=== PATIENT | female | born 1970 | race Caucasian/White ===

== ENCOUNTER 2017-08-12 00:21 | Emergency (ER) | payer OTHER ==
[2017-08-12] MEDS ORDERED: Diazepam TAB(*) 5 MG PO ONE (00:59)
--- NOTE | 2017-08-12 01:26 | ED ---
GI/ HPI - HPI Summary HPI Summary: 47F presents with vibrator in vagina today. she states the vibrator has been in the area for an hour. She denies any vaginal bleeding or discharge. She has pain from the vibrator. She denies any dysuria, n/v. She denies any diarrhea or constipation. She has not taken anything for her pain. pain is 6/ 10. - History of Current Complaint Chief Complaint: EDUrogenitalProblems Time Seen by Provider: 08/12/17 00:33 Stated Complaint: F/B IN VAGINA Hx Last Menstrual Period: december 27 Pain Intensity: 0 - Allergy/Home Medications Allergies/Adverse Reactions: Allergies Allergy/AdvReac Type Severity Reaction Status Date / Time Sulfa Antibiotics Allergy Hives Verified 10/19/15 16:20 PMH/Surg Hx/FS Hx/Imm Hx Endocrine/Hematology History: Reports: Hx Diabetes Denies: Hx Thyroid Disease Cardiovascular History: Denies: Hx Congestive Heart Failure, Hx Deep Vein Thrombosis, Hx Hypertension , Hx Myocardial Infarction, Hx Pacemaker/ICD Respiratory History: Denies: Hx Asthma, Hx Chronic Obstructive Pulmonary Disease (COPD), Hx Lung Cancer, Hx Pneumonia, Hx Pulmonary Embolism GI History: Denies: Hx Gall Bladder Disease, Hx Gastrointestinal Bleed, Hx Ulcer, Hx Urosepsis History: Denies: Hx Kidney Stones, Hx Renal Disease Musculoskeletal History: Denies: Hx Rheumatoid Arthritis, Hx Osteoporosis Neurological History: Denies: Hx Dementia, Hx Migraine, Hx Seizures, Hx Transient Ischemic Attacks (TIA) Psychiatric History: Denies: Hx Anxiety, Hx Depression, Hx Schizophrenia, Hx Bipolar Disorder Infectious Disease History: No Infectious Disease History: Denies: Hx Clostridium Difficile, Hx Hepatitis, Hx Human Immunodeficiency Virus (HIV), Hx of Known/Suspected MRSA, Hx Shingles, Hx Tuberculosis, Hx Known/ Suspected VRE, Hx Known/Suspected VRSA, History Other Infectious Disease, Traveled Outside the [place] in Last 30 Days - Family History Known Family History: Positive: None - Social History Alcohol Use: Occasionally Substance Use Type: Reports: None Smoking Status (MU): Never Smoked Tobacco Have You Smoked in the Last Year: No Review of Systems Negative: Fever Negative: Chest Pain Negative: Shortness Of Breath Positive: Abdominal Pain, Other - foreign body in vagina . Negative: Vomiting, Diarrhea, Nausea All Other Systems Reviewed And Are Negative: Yes Physical Exam Triage Information Reviewed: Yes Vital Signs On Initial Exam: Initial Vitals Temp Pulse Resp BP Pulse Ox 98.9 F 95 16 162/88 99 08/12/17 00:23 08/12/17 00:23 08/12/17 00:23 08/12/17 00:23 08/12/17 00:23 Vital Signs Reviewed: Yes Appearance: Positive: Well-Appearing Skin: Positive: Warm, Dry Head/Face: Positive: Normal Head/Face Inspection Eyes: Positive: Normal, Conjunctiva Clear Respiratory/Lung Sounds: Positive: Clear to Auscultation, Breath Sounds Present Cardiovascular: Positive: Normal, RRR Abdomen Description: Positive: Nontender, Soft Bowel Sounds: Positive: Present Pelvic Exam: Positive: external exam normal, other - purple foreign body on speculum exam. Negative: blood, discharge Musculoskeletal: Positive: Normal Neurological: Positive: Normal Psychiatric: Positive: Normal - [place] Coma Scale Coma Scale Total: 15 Diagnostics - Vital Signs Vital Signs Temp Pulse Resp BP Pulse Ox 08/12/17 01:03 16 08/12/17 00:23 98.9 F 95 16 162/88 99 - Laboratory Lab Statement: Any lab studies that have been ordered have been reviewed, and results considered in the medical decision making process. GIGU Course/Dx - Course Course Of Treatment: 47F presents with vibrator in vagina today. she states the vibrator has been in the area for an hour. She denies any vaginal bleeding or discharge. She has pain from the vibrator. She denies any dysuria, n/v. She denies any diarrhea or constipation. She has not taken anything for her pain. pain is 6/10. on speculum exam has small purple object in vagina. removed object with foreceps. patient understand and agrees with plan. - Diagnoses Differential Diagnoses - Female: Pelvic Inflammatory Disease, Retained Foreign Body, Vaginitis Provider Diagnoses: Foreign body in vagina Discharge - Discharge Plan Condition: Good Disposition: HOME Patient Education Materials: Vaginal Foreign Body (ED) Referrals: Dipika Lamas MD [Primary Care Provider] - Additional Instructions: Area may bleed a little Take Tylenol or ibuprofen for pain Return to ED if develop any new or worsening symptoms
[2017-08-12 01:31] VITALS: BP 150/66
== END 2017-08-12 01:30 | disposition home or self-care (01) ==
LOC: ED 00:21
DX: T19.2XXA Foreign body in vulva and vagina, initial encounter (principal); R10.9 Unspecified abdominal pain; E11.9 Type 2 diabetes mellitus without complications; X58.XXXA Exposure to other specified factors, initial encounter; Y92.9 Unspecified place or not applicable
CPT/HCPCS: 99282; A9270-GY

== ENCOUNTER 2018-04-29 14:54 | Emergency (ER) | payer OTHER ==
[2018-04-29] MEDS ORDERED: diPHENhydraMINE PO* 25 MG PO ONE (16:39)
[2018-04-29] MEDS ORDERED: Dexamethasone TAB* 4 MG PO ONE (16:39)
--- NOTE | 2018-04-29 16:49 | ED ---
Allergic Reaction/Systemic - HPI Summary HPI Summary: The pt is a 47 y.o female presenting to the [facility] with a chief complaint of a rash. The pt's symptoms have not resolved and are currently present. The pt described the rash as hive-like with redness and they are currently present in the abd regions. She has not attempted to touch the hives. Pt denies SOB, double vision, SIEGEL, ear ache, sore throat, back pain, abd pain, burning urination , nausea, vomiting, swollen tongue, fevers, and chills. She reports blurry vision in the past due to DM. The pt also states she has not taken Benadryl. The patient rates the pain 0/10 in severity. Symptoms aggravated by nothing. Symptoms alleviated by nothing. - History of Current Complaint Chief Complaint: EDRashSkinAbscess Hx Obtained From: Patient Hx Last Menstrual Period: two weeks ago, states she is not PG Onset/Duration: Still Present Timing: Constant Severity Currently: None Pain Intensity: 0 Pain Scale Used: 0-10 Numeric Location: Discrete @ - lower abd regions Character: Hives Aggravating Factor(s): Nothing Alleviating Factor(s): Nothing Associated Signs And Symptoms: Negative: Abdominal Pain, Difficulty Breathing - Related Hx Possible Reaction To: Unknown - Allergies/Home Medications Allergies/Adverse Reactions: Allergies Allergy/AdvReac Type Severity Reaction Status Date / Time Sulfa (Sulfonamide Allergy Hives Verified 04/29/18 15:09 Antibiotics) PMH/Surg Hx/FS Hx/Imm Hx Endocrine/Hematology History: Reports: Hx Diabetes - II on oral agents Denies: Hx Thyroid Disease Cardiovascular History: Denies: Hx Congestive Heart Failure, Hx Deep Vein Thrombosis, Hx Hypertension , Hx Myocardial Infarction, Hx Pacemaker/ICD Respiratory History: Denies: Hx Asthma, Hx Chronic Obstructive Pulmonary Disease (COPD), Hx Lung Cancer, Hx Pneumonia, Hx Pulmonary Embolism GI History: Denies: Hx Gall Bladder Disease, Hx Gastrointestinal Bleed, Hx Ulcer, Hx Urosepsis History: Denies: Hx Kidney Stones, Hx Renal Disease Musculoskeletal History: Denies: Hx Rheumatoid Arthritis, Hx Osteoporosis Neurological History: Denies: Hx Dementia, Hx Migraine, Hx Seizures, Hx Transient Ischemic Attacks (TIA) Psychiatric History: Denies: Hx Anxiety, Hx Depression, Hx Schizophrenia, Hx Bipolar Disorder - Surgical History Surgery Procedure, Year, and Place: none Infectious Disease History: No Infectious Disease History: Denies: Hx Clostridium Difficile, Hx Hepatitis, Hx Human Immunodeficiency Virus (HIV), Hx of Known/Suspected MRSA, Hx Shingles, Hx Tuberculosis, Hx Known/ Suspected VRE, Hx Known/Suspected VRSA, History Other Infectious Disease, Traveled Outside the [place] in Last 30 Days - Family History Known Family History: Positive: Diabetes Negative: Seizure Disorder - Social History Alcohol Use: Occasionally Hx Substance Use: No Substance Use Type: Reports: None Smoking Status (MU): Never Smoked Tobacco Have You Smoked in the Last Year: No Review of Systems Negative: Fever, Chills Eyes: Other - Negative double vision Positive: Blurred Vision - due to DM ENT: Other - Negative swollen tongue Negative: Sore Throat, Ear Ache Negative: Chest Pain Negative: Shortness Of Breath Negative: Abdominal Pain, Vomiting, Nausea Positive: no symptoms reported. Negative: burning Musculoskeletal: Other - Negative back pain Positive: Rash - Hives(redness) present at abd regions Neurological: Negative Psychological: Normal All Other Systems Reviewed And Are Negative: No Physical Exam - Summary Physical Exam Summary: Appearance: Alert, conversive, nontoxic appearing Skin: Hives urticarial lesions to the RUQ, RLQ and Left flank HEENT: EOMI, PERRL, moist mucous membranes Neck: No masses on the neck, supple Respiratory: Clear to auscultation, breath sounds present, no rales, no rhonchi , no wheezes Cardiovascular: RRR, pulses are symmetrical in both lower and upper extremities Abdomen: Soft, non-tender Bowel Sounds: Present Musculoskeletal: No CVA tenderness, no obvious deformity, moving all extremities in a grossly normal manner Neurological: A&Ox3, CN II-XII Intact, moving all extremities symmetrically Psychiatric: Normal affect and mood Triage Information Reviewed: Yes Vital Signs On Initial Exam: Initial Vitals Temp Pulse Resp BP Pulse Ox 97.8 F 84 16 143/99 97 04/29/18 15:03 04/29/18 15:03 04/29/18 15:03 04/29/18 15:03 04/29/18 15:03 Vital Signs Reviewed: Yes Diagnostics - Vital Signs Vital Signs Temp Pulse Resp BP Pulse Ox 04/29/18 15:03 97.8 F 84 16 143/99 97 - Laboratory Lab Statement: Any lab studies that have been ordered have been reviewed, and results considered in the medical decision making process. Allergic Reaction Course/Dx - Course Course Of Treatment: The pt is a 47 y.o female [facility] chief complaint of rash. Pt states the rash is present at the abd region and is unaware of the cause of the hives. The pt will be given Benedryl as well as steroids for treatment. Pt states she does have DM and we discussed the possibility of a slight raise in blood glucose levels as a result of the steroid treatment. We recommended follow up with PCP. She will be discharged home with a dx of Urticaria, contact dermitits. - Diagnoses Provider Diagnoses: Urticaria, Contact dermatitis Discharge - Sign-Out/Discharge Documenting (check all that apply): Patient Departure - Discharge home - Discharge Plan Condition: Stable Disposition: HOME Patient Education Materials: Urticaria (ED) Referrals: Dipika Lamas MD [Primary Care Provider] - Additional Instructions: take benadryl as instructed. you may take pepcid over the counter for itching and allergic reactions as well. follow up with your primary care physician. Please return if worse or any new symptoms. - Attestation Statements Document Initiated by Scribe: Yes Documenting Scribe: David Pope Provider For Whom Scribe is Documenting (Include Credential): Dr. Sharonda Hill Scribe Attestation: David Billings, scribed for Dr. Sharonda Hill on 04/29/18 at 1703.
[2018-04-29 17:17] VITALS: BP 152/86
== END 2018-04-29 17:16 | disposition home or self-care (01) ==
LOC: ED 14:54
DX: L50.9 Urticaria, unspecified (principal); L25.9 Unspecified contact dermatitis, unspecified cause; E11.9 Type 2 diabetes mellitus without complications; Z79.84 Long term (current) use of oral hypoglycemic drugs; Z88.2 Allergy status to sulfonamides
CPT/HCPCS: 99282; A9270-GY; J8540

== ENCOUNTER 2018-11-06 17:42 | Emergency (ER) | payer BC, OTHER ==
[2018-11-06 17:58] VITALS: BP 126/85
--- NOTE | 2018-11-06 18:19 | UC ---
Skin Complaint HPI - HPI Summary HPI Summary: 48-year-old female presents with complaints of pruritic rash for approximately 3 weeks. States she has had a persistent rash to bilateral forearms with intermittent rashes to her face and chest. 5 days ago developed rash to bilateral buttocks and upper legs. Denies swelling of the lips, tongue, throat , difficulty breathing, changes in medications, diet, soaps, detergents, lotions , cosmetics, or known contact with environmental irritants. - History of Current Complaint Chief Complaint: UCRash Time Seen by Provider: 11/06/18 18:14 Stated Complaint: RASH Hx Obtained From: Patient Hx Last Menstrual Period: 08/31/18 Pain Intensity: 0 - Allergy/Home Medications Allergies/Adverse Reactions: Allergies Allergy/AdvReac Type Severity Reaction Status Date / Time Sulfa (Sulfonamide Allergy Hives Verified 11/06/18 17:58 Antibiotics) PMH/Surg Hx/FS Hx/Imm Hx Endocrine History: Diabetes Other History Of: Negative For: HIV, Hepatitis B, Hepatitis C - Surgical History Surgical History: None Surgery Procedure, Year, and Place: none - Family History Known Family History: Positive: None, Diabetes Negative: Seizure Disorder - Social History Lives: With Family Alcohol Use: Occasionally Substance Use Type: None Smoking Status (MU): Never Smoked Tobacco Have You Smoked in the Last Year: No Review of Systems All Other Systems Reviewed And Are Negative: Yes Constitutional: Negative: Fever, Chills Skin: Positive: Rash - See HPI ENT: Negative: Other - Swelling of lips, tongue, or throat Respiratory: Negative: Shortness Of Breath Cardiovascular: Positive: Negative Gastrointestinal: Positive: Negative Genitourinary: Positive: Negative Musculoskeletal: Positive: Negative Neurological: Positive: Negative Is Patient Immunocompromised?: No Physical Exam - Summary Physical Exam Summary: GENERAL APPEARANCE: Well developed, well nourished, alert and cooperative, and appears to be in no acute distress. THROAT: No swelling of the lips or tongue. Pharynx normal No tonsilar inflammation, swelling, exudate, or lesions. Uvula midline. Airway intact. CARDIAC: Normal S1 and S2. No S3, S4 or murmurs. Rhythm is regular. There is no peripheral edema, cyanosis or pallor. Extremities are warm and well perfused. Capillary refill is less than 2 seconds. Peripheral pulses intact. LUNGS: Clear to auscultation without rales, rhonchi, wheezing or diminished breath sounds. ABDOMEN: Positive bowel sounds. Soft, nondistended, nontender. No guarding or rebound. No masses or hepatosplenomegally. MUSKULOSKELETAL: ROM intact to all extremities. No joint erythema or tenderness. Normal muscular development. Normal gait. SKIN: Fine maculopapular rash to bilateral ulnar forearms, bilateral buttocks, and to the lateral aspect of her bilateral upper legs. Triage Information Reviewed: Yes Vital Signs: Initial Vital Signs Temp 97.8 F 11/06/18 17:53 Pulse 91 11/06/18 17:53 Resp 18 11/06/18 17:53 BP 126/85 11/06/18 17:53 Pulse Ox 95 11/06/18 17:53 Vital Signs Reviewed: Yes Course/Dx - Course Course Of Treatment: 48-year-old female presents with complaints of pruritic rash for approximately 3 weeks. States she has had a persistent rash to bilateral forearms with intermittent rashes to her face and chest. 5 days ago developed rash to bilateral buttocks and upper legs. Denies swelling of the lips, tongue, throat , difficulty breathing, changes in medications, diet, soaps, detergents, lotions , cosmetics, or known contact with environmental irritants. Afebrile. Vital signs stable. Exam was remarkable for a fine maculopapular rash to bilateral ulnar forearms, bilateral buttocks, and to the lateral aspect of her bilateral upper legs. Recommending use of pain nondrowsy antihistamine twice daily for itching as well as a topical steroid for the rash. She has an appointment scheduled with her primary care provider in 3 days and has been instructed to keep this appointment for further evaluation. Anticipatory guidance and warning symptoms reviewed with the patient. Verbalizes understanding and agrees with plan of care. - Differential Diagnoses - Skin Complaint Differential Diagnoses: Allergic Reaction, Contact Dermatitis, Drug Rash, Urticaria - Diagnoses Provider Diagnosis: Dermatitis Discharge - Sign-Out/Discharge Documenting (check all that apply): Patient Departure All imaging exams completed and their final reports reviewed: No Studies - Discharge Plan Condition: Stable Disposition: HOME Prescriptions: Clobetasol Propionate/Emoll [Clobetasol Emollient 0.05% Crm] 30 gm TP BID #1 tube Patient Education Materials: Dermatitis (ED) Referrals: Dipika Lamas MD [Primary Care Provider] - 3 Days (As scheduled) Additional Instructions: Your rash appears to be a dermatitis of unknown cause. We will start you on a topical steroid to help with the rash and itching. Start clobetasol cream to the affected areas twice a day. Do not use for more than 2 weeks unless directed to do so by you provider. Use an over the counter non-drowsy antihistamine such as Zyrtec, Claritin, or Tana twice a day for the itching. You may use the generic forms of these medications. Follow up with your primary care provider in 3 days as scheduled. Seek immediate medical attention in the emergency room if you develop swelling of the lips, tongue, throat, have difficulty breathing, or any worsening of symptoms. - Billing Disposition and Condition Condition: STABLE Disposition: Home
== END 2018-11-06 18:50 | disposition home or self-care (01) ==
LOC: UCEAST 17:42
DX: L30.9 Dermatitis, unspecified (principal); Z88.2 Allergy status to sulfonamides
CPT/HCPCS: 99212; G0463